=== PATIENT | female | born 1985 | race Caucasian/White ===

== ENCOUNTER 2016-07-11 14:06 | Emergency (ER) | payer OTHER ==
--- NOTE | 2016-07-11 15:05 | EDPHY ---
H & P Time Seen by Provider: 07/11/16 14:31 HPI/ROS: CHIEF COMPLAINT: Headache. HISTORY OF PRESENT ILLNESS: The patient is a 31-year-old female who presents with left-sided headache. At 1015 this morning while canoeing she suddenly developed dizziness and blurry/spotted vision in her right eye. These symptoms resolved but she experienced expressive aphasia described as using real words in the incorrect context. She then developed numbness in her right arm, nose, and tongue. These symptoms all resolved and she is only complaining of mild left -sided headache on arrival. She admits mild associated dizziness. She denies vomiting, diarrhea, fever, recent sickness, shortness of breath, recent head trauma. She has no history of similar symptoms. REVIEW OF SYSTEMS: A complete 10-point review of systems was performed and is negative except for those items mentioned in the HPI. Past Medical/Surgical History: Scoliosis, asthma. Social History: , lives in [place], social alcohol use. Smoking Status: Never smoked Physical Exam: General Appearance: Alert, no distress Eyes: Pupils equal and round, no conjunctival pallor or injection ENT, Mouth: Mucous membranes moist Neck: Normal inspection Respiratory: Lungs are clear to auscultation Cardiovascular: Regular rate and rhythm Gastrointestinal: Abdomen is soft and non-tender Neurological: Alert, oriented x3, cranial nerves II through XII intact, motor 5 /5, sensory intact to light touch, normal gait Skin: Warm and dry, no rash Extremities: Nontender, no pedal edema Psychiatric: Mood and affect normal Constitutional: Initial Vital Signs Temperature (C) 36.7 C 07/11/16 14:10 Heart Rate 90 07/11/16 14:10 Respiratory Rate 18 07/11/16 14:10 Blood Pressure 121/78 H 07/11/16 14:10 O2 Sat (%) 97 07/11/16 14:10 O2 Delivery Mode Room Air Allergies/Adverse Reactions: Penicillins Allergy (Verified 06/28/11 19:12) Home Medications: Medication Instructions Recorded Vit/Fe Fumarate/FA 1 each PO DAILY 06/28/11 [ Tablet] Albuterol Sulfate [Proair 90 mcg IH 11/21/14 Respiclick] Budesonide 180 Mcg INH [Pulmicort 180 mcg IH 11/21/14 180Mcg Flexhaler (*)] Hydrocodone/APAP 5/325 [[place] 1 - 2 tab PO Q4 PRN #40 tab 11/24/14 5/325 (*)] Ibuprofen [Motrin (*)] 600 mg PO Q6 PRN #60 tab 11/24/14 Medical Decision Making - Diagnostics Imaging Results: Imaging Impressions Brain MRI 07/11/16 15:17 Impression: Normal MRI of the brain without contrast. Results called and discussed with CONNIE STEELE M.D. on 07/11/2016 at 16:55 ED Course/Re-evaluation: 31-year-old female presents after an episode of aphasia, dizziness, blurry vision, and right arm numbness earlier today while canoeing. She is complaining only of headache on arrival. On exam she is neurologically intact. I think this is most likely a complex migraine. However, a brain MRI will be checked for intracranial abnormality. I offered Tylenol and Ibuprofen for her headache but she declined. 1655: MRI results conveyed to me negative by radiology. c/w complex migraine ALONSO. Neuro exam intact. She will be discharged home with primary care follow up. Differential Diagnosis: Headache including but not limited to subarachnoid hemorrhage, migraine headache , tension headache and infectious causes such as meningitis, pharyngitis and sinusitis. Departure - Departure Disposition: Home, Routine, Self-Care Clinical Impression: Migraine Qualifiers: Migraine type: unspecified Status migrainosus presence: without status migrainosus Intractability: not intractable Qualified Code(s): G43.909 - Migraine, unspecified, not intractable, without status migrainosus Condition: Good Instructions: Migraine Headache (ED), Ocular Migraine (ED) Additional Instructions: Follow up with your primary care provider this week for reevaluation. Take 600mg Ibuprofen every 6-8 hours as needed for headache. Return for any serious worsening of condition. Referrals: Francy Maya MD [Primary Care Provider] - As per Instructions Report Scribed for: Connie Steele Report Scribed by: Mina Almanza Date of Report: 07/11/16 Time of Report: 15:04 Physician Review and Approval Statement: 07/11/16 15:04 Portions of this note were transcribed by a medical receptionist biller. I personally performed a history, physical exam, medical decision making, and confirmed accuracy of information the transcribed note.
[2016-07-11 16:22] VITALS: TEMP 98.4; O2SAT 94
[2016-07-11 17:19] VITALS: BP 112/73; PULSE 87; RESP 14
== END 2016-07-11 17:20 | disposition home or self-care (01) ==
DX: G43.909 Migraine, unspecified, not intractable, without status migrainosus (principal); J45.909 Unspecified asthma, uncomplicated

== ENCOUNTER 2017-04-07 16:59 | Emergency (ER) | payer OTHER ==
--- NOTE | 2017-04-07 17:06 | EDPHY ---
H & P Time Seen by Provider: 04/07/17 17:05 HPI/ROS: HPI: This is a 31-year-old female who presents with Chief Complaint: Migraine Location: Quality: Duration: Signs and Symptoms: No fever, no weakness, no neck stiffness, no visual changes , + aura Timing: Severity: Context: Patient reports that she has a history of complex migraines diagnosed approximately 1 year ago but she has never followed up with Neurology and is not on a basal medication or board of migraine medication. She reports that she has had approximately 2 severe migraines over the last year and 4 mild headaches interim. Around 10 30 or 11:00 a.m. this morning she started to feel "off" and then had some tingling in her left lower extremity and left upper extremity that was nonradiating in nature accompanied by sudden onset of nausea , vomiting approximately 4 times, dizziness, and pressure on her right muslim and behind her right eye. Patient reports that this is similar to her previous migraine headache last year including aura prior to onset of headache. She took some Benadryl at home approximately around noon but with no relief of her headache. Chart review shows that on 07/11/2016 brain MRI performed and showed no acute intracranial abnormality. Patient denies any fever/chills/neck stiffness/weakness/numbness/tingling. EMS was called on route patient given IV Zofran with mild relief of nausea. Patient believes that maybe her hormone changes have induced this headache as she recently stopped breast-feeding. Patient did eat breakfast this morning but has not eaten lunch or dinner. Modifying Factors: Zofran Comment: ROS: see HPI Constitutional: No fever, no chills, no weight loss Eyes: No blurred vision Respiratory: No shortness of breath, no cough Cardiovascular: No chest pain Gastrointestinal: No nausea, no vomiting, no diarrhea Genitourinary: No dysuria Extremities: No myalgias Neurologic: No weakness, no numbness Skin: No rashes Hematologic: No bruising, no bleeding MEDICAL/SURGICAL/SOCIAL HISTORY: Medical history: Scoliosis, asthma, migraine headaches Surgical history: x2 Social history: . CONSTITUTIONAL: Nontoxic appearing adult white female, at bedside, polite and cooperative, interactive and talkative, awake and alert, no obvious distress HEENT: Atraumatic and normocephalic, PERRL, EOMI. Tympanic membranes clear. Oropharynx clear, no exudate and moist pink mucosa. Airway patent. No lymphadenopathy. No meningismus. Cardiovascular: Normal S1/S2, regular rate, regular rhythm, without murmur rub or gallop. PULMONARY/CHEST: Symmetrical and nontender. Clear to auscultation bilaterally. Good air movement. No accessory muscle usage. ABDOMEN: Soft, nondistended, nontender, no rebound, no guarding, no peritoneal signs, no masses or organomegaly. No CVAT. EXTREMITIES: 2/2 pulses, strength 5/5, no deformities, no clubbing, no cyanosis or edema. NEUROLOGICAL: no focal neuro deficits. GCS 15. Cranial nerves 2-12 grossly intact. 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 Pedal pushes 5/5 equal bilaterally. Speech is clear. Normal Romberg test. Normal cerebellar testing. SKIN: Warm and dry, no erythema. no rash. Good capillary refill. Source: Patient, Family () Exam Limitations: No limitations - Personal History Tetanus Vaccine Date: 2014 - Medical/Surgical History Hx Splenectomy or Spleen Trauma: No Other PMH: scoliosis - Social History Smoking Status: Never smoked Constitutional: Initial Vital Signs Temperature (C) 36.4 C 04/07/17 17:06 Heart Rate 82 04/07/17 17:06 Respiratory Rate 18 04/07/17 17:06 Blood Pressure 127/76 H 04/07/17 17:06 O2 Sat (%) 99 04/07/17 17:06 O2 Delivery Mode Room Air Allergies/Adverse Reactions: Penicillins Allergy (Verified 06/28/11 19:12) Home Medications: Medication Instructions Recorded Vit/Fe Fumarate/FA 1 each PO DAILY 06/28/11 [ Tablet] Albuterol Sulfate [Proair 90 mcg IH 11/21/14 Respiclick] Budesonide 180 Mcg INH [Pulmicort 180 mcg IH 11/21/14 180Mcg Flexhaler (*)] Hydrocodone/APAP 5/325 [[place] 1 - 2 tab PO Q4 PRN #40 tab 11/24/14 5/325 (*)] Ibuprofen [Motrin (*)] 600 mg PO Q6 PRN #60 tab 11/24/14 Butal/Asp/Caffeine-Fiorinal 1 each PO Q6 PRN #12 cap 04/07/17 [Fiorinal 50-325-40 mg Cap (RX)] Ondansetron Odt [Zofran Odt 4 mg 4 mg PO Q4 PRN #12 tab 04/07/17 (*)] Medical Decision Making ED Course/Re-evaluation: Afebrile and no systemic signs. Patient has no neurological deficits. Brain imaging is not indicated at this time. IV Decadron, IV Toradol, IV promethazine, and 1 L normal saline ordered with adequate relief 1840: Reassessed patient who reports that she has moderate relief of her migraine. Agrees to Neurology follow-up at this time. Passed p.o. trial prior to discharge. at bedside will drive patient home. This patient was seen under the supervision of my secondary supervising physician. I evaluated care for this patient independently. Discussed this patient with Dr. Steele who did not see the patient. Patient's presentation, labs /imaging, treatment and plan of care were discussed with primary supervising physician. Differential Diagnosis: Headache including but not limited to subarachnoid hemorrhage, migraine headache , tension headache and infectious causes such as meningitis, pharyngitis and sinusitis. - Data Points Medications Given: Discontinued Medications Dexamethasone (Decadron Injection) 4 mg IVP EDNOW ONE Stop: 04/07/17 17:11 Last Admin: 04/07/17 17:23 Dose: 4 mg Sodium Chloride (Ns) 1,000 mls @ 0 mls/hr IV ONCE ONE PRN Reason: Wide Open Stop: 04/07/17 17:14 Last Admin: 04/07/17 17:23 Dose: 1,000 mls Ketorolac Tromethamine (Toradol) 30 mg IVP EDNOW ONE Stop: 04/07/17 17:14 Last Admin: 04/07/17 17:23 Dose: 30 mg Promethazine HCl (Phenergan) 25 mg IVP EDNOW ONE Stop: 04/07/17 17:10 Last Admin: 04/07/17 17:23 Dose: 25 mg Departure - Departure Disposition: Home, Routine, Self-Care Clinical Impression: Migraine Qualifiers: Migraine type: with aura Status migrainosus presence: without status migrainosus Intractability: not intractable Qualified Code(s): G43.109 - Migraine with aura, not intractable, without status migrainosus Condition: Good Instructions: Migraine Headache (ED) Additional Instructions: Please rest as much as possible today and tomorrow. Drink plenty of fluids to prevent dehydration. Make an appointment to follow up with Neurology in establish care in the next 1- 2 weeks. Reduce stress as much as possible and avoid triggers such as lack of sleep. Referrals: Rod Billings MD [Medical Doctor] - As per Instructions Prescriptions: Butal/Asp/Caffeine-Fiorinal [Fiorinal 50-325-40 mg Cap (RX)] 1 each PO Q6 PRN # 12 cap PRN Reason: Headache, Migrane Ondansetron Odt [Zofran Odt 4 mg (*)] 4 mg PO Q4 PRN #12 tab PRN Reason: Nausea/Vomiting, Use 1st
[2017-04-07] MEDS ORDERED: PROMETHAZINE HCL 25 MG/ML INJ IVP ONE (17:09)
[2017-04-07] MEDS ORDERED: DEXAMETHASONE 4 MG/ML VIAL IVP ONE (17:10)
[2017-04-07] MEDS ORDERED: NS 1,000 ML IV ONE (17:13)
[2017-04-07] MEDS ORDERED: KETOROLAC 30 MG/1 ML SDV IVP ONE (17:13)
[2017-04-07 19:49] VITALS: BP 120/83; PULSE 71; RESP 18; TEMP 97.9; O2SAT 97
== END 2017-04-07 19:49 | disposition home or self-care (01) ==
LOC: EDUNIT#
DX: G43.109 Migraine with aura, not intractable, without status migrainosus (principal); J45.909 Unspecified asthma, uncomplicated
CPT/HCPCS: J1100; J1885; J2550

== ENCOUNTER → 2017-11-09 | Outpatient (CLI) | payer OTHER ==
[~2017-11-09] MED LIST: GADOBUTROL 10 ML VIAL IVP ONE
== END ==
LOC: FIMAGING 06:37
PROVIDERS: ATTEND Physician Assistant Medical
DX: R94.02 Abnormal brain scan (principal); J34.1 Cyst and mucocele of nose and nasal sinus
CPT/HCPCS: A9585

== ENCOUNTER → 2017-11-10 | Outpatient (CLI) | payer OTHER ==
--- NOTE | 2017-11-12 07:55 | CPEEG ---
[f rep st] ELECTROENCEPHALOGRAM DATE OF STUDY: 11/10/2017 INTERPRETATION: This 4-hour video EEG recording is normal. There were no potentially epileptogenic abnormalities present during the awake or sleep studies. During the video EEG monitoring session, th e patient did not have any clinical events. REPORT: This 4-hour video EEG contains 10 Hz alpha activity of the posterior head regions. The back ground activity was normal and symmetric. There was no abnormal activation at rest, during photic st imulation or hyperventilation. The patient became drowsy and fell into sustained sleep during the st udy. There was no abnormal activation during drowsiness, sleep, or during times of arousal. The pat ient did not have any clinical events during the video EEG monitoring session. /[id number]/MODL
== END ==
LOC: FCPNEURO 07:54
PROVIDERS: ATTEND Physician Assistant Medical
DX: G43.109 Migraine with aura, not intractable, without status migrainosus (principal); F80.81 Childhood onset fluency disorder

== ENCOUNTER → 2018-01-13 | Outpatient (CLI) | payer OTHER | LOC: FIMAGING 07:23 | PROVIDERS: ATTEND Family Medicine | DX: R93.89 Abnormal findings on diagnostic imaging of other specified body structures (principal) ==

== ENCOUNTER → 2018-05-12 | Outpatient (CLI) | payer OTHER | LOC: FIMAGING 12:15 | PROVIDERS: ATTEND Physician Assistant Medical | DX: G93.9 Disorder of brain, unspecified (principal); G43.109 Migraine with aura, not intractable, without status migrainosus; R90.82 White matter disease, unspecified | CPT/HCPCS: A9585 ==